=== PATIENT | female | born 1960 | race Caucasian/White ===

== ENCOUNTER → 2018-12-06 20:20 | Outpatient (CLI) | payer OTHER, SELFPAY ==
[2018-11-29 20:00] VITALS: BMI 39.1
== END ==
PROVIDERS: Family Provider Nurse Practitioner; PCP Nurse Practitioner; Referring Provider Nurse Practitioner; Visit Provider Nurse Practitioner
DX: S91.332A Puncture wound without foreign body, left foot, initial encounter (principal); X58.XXXA Exposure to other specified factors, initial encounter
CPT/HCPCS: 87070; 87075; 87077; 87186; 87205